=== PATIENT | male | born 1975 | race Hispanic/Latino ===

== ENCOUNTER 2024-10-01 10:25 | Day surgery (SDC) | payer BC ==
[2024-10-01] MEDS: Ringers Lactate 1,000 ML IV ONE (10:50)
[2024-10-01 10:59] LABS: Absolute Eosinophils 0.1 K/uL (0-0.5); Absolute Lymphocytes (CBC) 2.1 K/uL (0.7-4.9); Absolute Monocytes 0.5 K/uL (0.1-1.3); Absolute Neutrophil 3.1 K/uL (1.8-8.0); Basophils % 0.5 % (0-1.3); Eosinophils % 2.1 % (0-4.4); Hematocrit 40.9 % (39.6-49.0); Hemoglobin 14.2 g/dL (13.6-17.9); Lymphocytes % 35.3 % (15.3-44.8); MCH 31.2 pg (27.0-35.0); MCHC 34.7 g/dL (32.0-36.0); MCV 90.1 fL (80-100); Neutrophils % 53.1 % (41.7-73.7); Platelets 257 thou/uL (152-406); RBC Red Blood Cell Count 4.54 M/uL (4.33-5.43); Red Cell Distribution Width 13.9 % (12.1-15.2)
[2024-10-01 11:12] LABS: Anion Gap 5.8 mEq/L (5.0-15.0); Potassium 3.8 mEq/L (3.5-5.1)
[2024-10-01] MEDS ORDERED: MIDAZOLAM HCL 2 MG/2 ML INJ ONE (12:31)
[2024-10-01] MEDS ORDERED: propofoL 200 MG/20 ML VIAL IV ONE (12:31)
[2024-10-01] MEDS ORDERED: FENTANYL CITR 100 MCG/2 ML ONE (12:31)
[2024-10-01] MEDS ORDERED: KETOROLAC 30 MG/ML INJ ONE (12:31)
[2024-10-01] MEDS ORDERED: ONDANSETRON 4 MG/2 ML VIAL ONE (12:31)
[2024-10-01] MEDS ORDERED: dexAMETHasone 10 MG/ML VIAL ONE (12:31)
[2024-10-01] MEDS ORDERED: LIDOCAINE 2% MPF 5 ML VIAL ONE (12:32)
[2024-10-01] MEDS: CEFAZOLIN SODIUM 1 GM/VIAL ONE (12:44)
[2024-10-01] MEDS ORDERED: NS 0.9% VIAL 10 ML ONE ×2 (13:11→13:40)
--- NOTE | 2024-10-01 13:25 | P.BOP ---
Preoperative diagnosis: ulcerated posterior skin mass Postoperative diagnosis: same Primary procedure: Excisional biopsy with frozen section ulcerated posterior skin mass 3x3cm Estimated blood loss: <10cc Specimen: mass Anesthesia: General Complications: None Transferred to: Recovery Room Condition: Good
[2024-10-01 16:46] VITALS: BP 101/63; TEMP 97.7; O2SAT 99
== END 2024-10-01 15:25 | disposition home or self-care (01) ==
LOC: OR 10:25
PROVIDERS: ATTEND Surgery
PROC: 0HB4XZZ Excision of Neck Skin, External Approach (ICD-10-PCS; principal; 2024-10-01 12:30)
DX: D23.4 Other benign neoplasm of skin of scalp and neck (principal)
CPT/HCPCS: 93005; 87070; 85025; 80048; 36415; 87205; 88331; 88332; 88304; 87075; 11423; A4216 ×2; J2704; J2003; J2250; J3010; J1100; J2405; J7120; J0690